=== PATIENT | male | born 1955 | race Caucasian/White ===

== ENCOUNTER 2016-10-18 21:28 | Emergency (ER) | payer SELFPAY ==
[2016-10-18] MEDS ORDERED: Oseltamivir 75 MG CAP ONE (22:22)
--- NOTE | 2016-10-18 22:22 | RAD ---
PA AND LATERAL CHEST: HISTORY: Cough and body aches. FINDINGS: Heart size and mediastinum are within normal limits. The lungs are clear of infiltrates. No signif icant bony findings. IMPRESSION: No active intrathoracic disease. POS: [facility]
--- NOTE | 2016-10-18 22:29 | PICIS ---
[facility] EMERGENCY RECORD TRIAGE (21:36 KASA) TRIAGE NOTES: Coughing started yesterday. Has been hot/cold all day. Has "only been able to sleep and cough". Pain on back when breathing (L>R). (21:36 KASA) PATIENT: NAME: Maco David, AGE: 61, GENDER: male, : Sat 1955, TIME OF GREET: SatOct 18, 2016 21:29, PREFERRED LANGUAGE: Irish, ETHNICITY: Not or , ECODE BILLING MAP: [facility] ER, SSN: [id number], Zip Code: [address], KG WEIGHT: [phone], PHONE: , , , PERSON ID: [id number], PCP: None. (21:36 KASA) COMPLAINT: Cough. (21:36 KASA) ADMISSION: URGENCY: 3 Urgent, ADMISSION SOURCE: Home, TRANSPORT: CAR, BED: ER -03. (21:36 KASA) PAIN: Patient complains of pain described as, stabbing, on a scale 0-10 patient rates pain as 4, Location Back, Pain is constant, Onset was 10/17/2016, Aggravating factors:, Aggravating factors include Coughing, No relieving factors. (21:45 KASA) IMMUNIZATIONS: Flu vaccine not up to date, Tetanus immunization up to date. (21:45 KASA) SIRS SCORING: Heart Rate 55-109 (0), Temp range 96.8-101.1 (0), respiratory rate 12-24 (0), Mental Status altered: no (0). (21:45 KASA) TRIAGE SCREENING: Patient denies suicidal ideation, Patient denies presence of domestic violence. (21:45 KASA) PROVIDERS: TRIAGE NURSE: Elizabeth Jalloh RN. (21:36 KASA) VITAL SIGNS: BP 126/75, Pulse 82, Resp 26, Temp 99.0, (Oral), Pain 4, (Stabbing), O2 Sat 94, on Room Air, Time 10/18/2016 21:32. (21:32 KASA) PREVIOUS VISIT ALLERGIES: No Known Drug Intolerances. (21:36 KASA) No Known Drug Intolerances. (21:45 KASA) KNOWN ALLERGIES No Known Drug Intolerances CURRENT MEDICATIONS (21:36 KASA) None VITAL SIGNS (21:32 KASA) VITAL SIGNS: BP: 126/75, Pulse: 82, Resp: 26, Temp: 99.0 (Oral), Pain: 4 (Stabbing), O2 sat: 94 on Room Air, Time: 10/18/2016 21:32. NURSING ASSESSMENT: CARDIOVASCULAR (21:45 KASA) CARDIOVASCULAR: Cardiovascular assessment findings include heart rate normal, Heart sounds normal, Associated with, +1 edema to the lower extremities, pitting, Notes: Patient states history of diabetes. Patient educated on the need to check his feet everyday. Admits to smoking and states he is trying &a-1R&a+25V*p+0X*b5748V*c202B*c15G*c2P*p-0X&a-25V&a+1R Name: Maco David : 1955 M61 MedRec: [id number] AcctNum: [id number] Prepared: [facility] Oct 18, 2016 22:33 by Interface Page 1 of 7 pMD [facility] EMERGENCY RECORD to quit. Encouraged to keep on working on it. NURSING ASSESSMENT: RESPIRATORY /CHEST (21:45 KASA) CONSTITUTIONAL: Patient arrives ambulatory, Gait steady, History obtained from patient, Patient appears, generally ill, obese, uncomfortable, Patient cooperative, Patient alert, Oriented to person, place and time, Skin warm, Skin dry, Skin normal in color, Mucous membranes pink, Mucous membranes moist, Patient complains of Cough, aching, Coughing started yesterday. Has been hot/cold all day. Has "only been able to sleep and cough". Pain on back when breathing (L>R). RESPIRATORY/CHEST: Breath sounds clear, Respiratory assessment findings include respiratory effort easy, Respirations regular, Conversing normally, Neck and chest exam findings include trachea midline, Chest expansion equal, Chest movement symmetrical, no signs of distress, Associated with cough, non-productive, productive of, yellow sputum. SAFETY: Side rails up, Cart/Stretcher in lowest position, Family at bedside, Call light within reach, Hospital ID band on. NURSING PROCEDURE: ENT (21:40 EPIE) ENT: Nasal swab collected, labeled in the presence of the patient and sent to lab for testing of, influenza A, influenza B, collected by Valarie CARDENAS. FOLLOW-UP: After procedure, no further bleeding from nose. NURSING PROCEDURE: RESPIRATORY INTERVENTIONS (22:00 KASA) PATIENT IDENTIFIER: Patient actively involved in identification process, Patient's identity verified by patient stating name, Patient's identity verified by patient stating date. RESPIRATORY INTERVENTIONS: Respiratory interventions indicated for SOB, Patient given ALBUTEROL with ATROVENT, Single dose nebulizer, Dose: 3 ml, Aerochamber used, Aerochamber instruction given, Patient returned demonstration of use of aerochamber. SAFETY: Side rails up, Cart/Stretcher in lowest position, Family at bedside, Call light within reach, Hospital ID band on. NURSING PROCEDURE: TRANSPORT TO TESTS PATIENT IDENTIFIER: Patient actively involved in identification process, Patient's identity verified by patient stating name, Patient's identity verified by patient stating date. (21:50 KASA) TRANSPORT TO TESTS: Patient transported to x-ray, via cart, Accompanied by x-ray hazardous waste material technician. (21:50 KASA) FOLLOW-UP: After procedure, patient returned to emergency department. (21:56 KASA) SAFETY: Side rails up, Cart/Stretcher in lowest position, Family at bedside, Call light within reach, Hospital ID band on. (21:56 KASA) &a-1R&a+25V*p+0X*q4955L*c202B*c15G*c2P*p-0X&a-25V&a+1R Name: Maco David : 1955 M61 MedRec: [id number] AcctNum: [id number] Prepared: SatOct 18, 2016 22:33 by Interface Page 2 of 7 pMD [facility] EMERGENCY RECORD Side rails up, Cart/Stretcher in lowest position, Family at bedside, Call light within reach, Hospital ID band on. (21:50 KASA) ORDER DETAILS Order Name: ERRT * Smal Vol Neb Initial Trmt, Status: Active, Time: 21:56 10/18/2016, User: RUFINA, - Ordered for: MD Donte, Ty, - Entered by: RONALD Mason Emily - [facility] Oct 18, 2016 21:56, - Quantity: 1, Order Name: Influenza A&B Ag Screen, Status: Active, Time: 21:36 10/18/2016, User: KAI, - Ordered for: MD Kent Joshua, - Entered by: MD Kent Joshua - [facility] Oct 18, 2016 21:36, - Quantity: 1, Order Name: XR Chest Pa & Lat STANDARD, Status: Active, Time: 21:37 10/18/2016, User: KAI, - Ordered for: MD Kent Joshua, - Entered by: MD Kent Joshua - [facility] Oct 18, 2016 21:37, - Quantity: 1. MEDICATION ADMINISTRATION SUMMARY Drug Name: Tamiflu, Dose Ordered: 75 mg, Route: Oral, Status: Given, Time: 22:26 10/18/2016, Drug Name: *DuoNeb, Dose Ordered: 3 mL, Route: Nebulize, Status: Given, Time: 21:59 10/18/2016, *Additional information available in notes, Detailed record available in Medication Service section. MEDICATION SERVICE DuoNeb: Order: DuoNeb (ipratropium bromide/albuterol sulfate) - Dose: 3 mL : Nebulize Notes: (0.5mg Ipratropium [place]/3mg Albuterol Sulfate = 3ml) Ordered by: Ty Kent MD Entered by: Ty Kent MD [facility] Oct 18, 2016 21:48 , Acknowledged by: Elizabeth Jalloh RN [facility] Oct 18, 2016 21:57 Documented as given by: Elizabeth Jalloh RN [facility] Oct 18, 2016 21:59 Patient, Medication, Dose, Route and Time verified prior to administration. Amount given: 3 ml, Site: Medication administered via Hand-held nebulizer, With oxygen, Correct patient, time, route, dose and medication confirmed prior to administration, Patient advised of actions and side-effects prior to administration, Allergies confirmed and medications reviewed prior to administration, Patient in position of comfort, Side rails up, Cart in lowest position, Family at bedside. Tamiflu: Order: Tamiflu (oseltamivir phosphate) - Dose: 75 mg : Oral Ordered by: Ty Kent MD Entered by: Ty Kent MD [facility] Oct 18, 2016 22:18 , &a-1R&a+25V*p+0X*z5655E*c202B*c15G*c2P*p-0X&a-25V&a+1R Name: Maco David : 1955 M61 MedRec: [id number] AcctNum: [id number] Prepared: SatOct 18, 2016 22:33 by Interface Page 3 of 7 pMD [facility] EMERGENCY RECORD Acknowledged by: Elizabeth Jalloh RN [facility] Oct 18, 2016 22:22 Documented as given by: Elizabeth Jalloh RN [facility] Oct 18, 2016 22:26 Patient, Medication, Dose, Route and Time verified prior to administration. Amount given: 75 mg, Site: Medication administered P.O., Correct patient, time, route, dose and medication confirmed prior to administration, Patient advised of actions and side-effects prior to administration, Allergies confirmed and medications reviewed prior to administration, Patient in position of comfort, Side rails up, Cart in lowest position, Family at bedside. HPI FLU-LIKE SYNDROME (21:48 JLOY) CHIEF COMPLAINT: Patient presents for evaluation of body aches, Patient presents for evaluation of fatigue, Patient presents for evaluation of fever, subjective, Patient presents for evaluation of upper respiratory infection, Patient presents for evaluation of Pt with 2 days of cough, body aches. Pt reports contact with a child diagnosed with flu this week. HISTORIAN: History provided by patient. LOCATION: No localizing symptoms. QUALITY: Pain is dull in nature, described as aching. TIME COURSE: Gradual onset of symptoms, Symptoms are worsening. ASSOCIATED WITH: No associated abdominal pain, No associated chest pain, Associated with cough, productive, No associated diarrhea, No associated flank pain, Associated with headache, intermittent, No associated vomiting, Associated with shortness of breath, intermittent, No associated urinary tract infection signs or symptoms. EXACERBATED BY: Patient's condition exacerbated by nothing. RELIEVED BY: Patient's condition relieved by prescription medications, neb treatment 8 hours ago. IMMUNIZATION STATUS: Flu vaccine up to date, Pneumococcal vaccine up to date. ROS (21:50 JLOY) CONSTITUTIONAL: Historian reports chills, reports fever. EYES: Historian denies eye pain, denies eye redness, denies eye discharge. ENT: Historian denies rhinorrhea, reports sore throat. CARDIOVASCULAR: Historian denies chest pain. RESPIRATORY: Historian reports cough, reports shortness of breath, reports sputum. yellow. GI: Historian denies abdominal pain, denies diarrhea, denies nausea, denies vomiting. GENITOURINARY MALE: Historian denies dysuria, denies hematuria. MUSCULOSKELETAL: Historian reports arthralgias, reports myalgias. NEUROLOGIC: Historian denies dizziness, intermittent &a-1R&a+25V*p+0X*o4171C*c202B*c15G*c2P*p-0X&a-25V&a+1R Name: Maco David : 1955 M61 MedRec: [id number] AcctNum: [id number] Prepared: Bambi Oct 18, 2016 22:33 by Interface Page 4 of 7 pMD [facility] EMERGENCY RECORD TALAMANTES. ENDOCRINE: Historian reports polyuria. PAST MEDICAL HISTORY MEDICAL HISTORY: Flu vaccine not up to date, Tetanus immunization up to date, Date of immunization: 2014, Past medical history includes cardiac history, coronary artery disease, Past medical history includes history of diabetes, Type II, not currently on treatment, noncompliant with treatment regime, Past medical history includes endocrine disease, hypothyroidism, Past medical history includes gastrointestinal disease, gallstones, Past medical history includes history of hyperlipidemia, high cholesterol, high triglycerides, currently not being treated, Past medical history includes history of hypertension, which has not been treated, Patient is noncompliant, Past medical history includes pulmonary disease, chronic obstructive pulmonary disease. (21:45 KASA) MALE SURGICAL HISTORY: Surgical history of cholecystectomy, cardiac cath, no stent placement. (21:45 KASA) PSYCHIATRIC HISTORY: Psychiatric history includes, depression. (21:45 KASA) SOCIAL HISTORY: Patient denies alcohol use, Patient denies drug use, Patient currently uses tobacco, smokes cigarettes, daily, Patient has smoked for 30 years, Patient smokes 1 pack per day, Lives at home, with family, and 3 grandkids. (21:45 KASA) FAMILY HISTORY: Paternal history of cardiac disease:, coronary artery disease, myocardial infarction, Paternal history of diabetes:, Paternal history of hypertension:, Maternal history of hypertension. (21:45 KASA) NOTES: Nursing records reviewed, Agree with nursing records. (21:51 JLOY) PHYSICAL EXAM (21:50 JLOY) CONSTITUTIONAL: Vital signs reviewed, Patient appears non toxic, Patient alert and oriented to person, place and time. EYES: Eye exam included findings of eyelids normal to inspection, Pupils equally round and reactive to light, Conjunctiva normal. ENT: Pharynx exam normal, Uvula exam normal, Tonsil exam normal, Mouth exam included findings of, mucous membranes dry. NECK: Neck exam included findings of normal range of motion, Trachea midline, no cervical adenopathy. RESPIRATORY CHEST: Respiratory exam included findings of no respiratory distress, Wheezing present, scattered, Breath sounds otherwise clear, Chest exam included findings of chest movement symmetrical. CARDIOVASCULAR: Cardiovascular exam included findings of heart &a-1R&a+25V*p+0X*o1477B*c202B*c15G*c2P*p-0X&a-25V&a+1R Name: Maco David : 1955 M61 MedRec: [id number] AcctNum: [id number] Prepared: SatOct 18, 2016 22:33 by Interface Page 5 of 7 pMD [facility] EMERGENCY RECORD rate regular rate and rhythm, Heart sounds normal. ABDOMEN MALE: Abdominal exam included findings of abdomen nontender, Bowel sounds normal. BACK: Back exam included findings of normal inspection. UPPER EXTREMITY: Upper extremity exam included findings of inspection normal. LOWER EXTREMITY: Lower extremity exam included findings of inspection normal, no edema, no calf tenderness. NEURO: Meenakshi coma scale 15, Neuro exam findings include patient oriented to person, place and time, Speech normal. SKIN: Skin exam included findings of skin warm, dry, and normal in color, no rash. PSYCHIATRIC: Normal affect. EVENTS TRANSFER: Triage to Emergency Emergency Room -03. ([facility] Oct 18, 2016 21:36 KASA) Removed from Emergency Emergency Room -03. (22:31 KASA) DOCTOR NOTES (22:19 JLOY) RE-EVALUATION: The patient's condition has improved, Pt feels less SOB after the treatment. No wheezing and good airflow on exam. TEXT: Discussed the results. With the positive exposure the negative flu is likely a false negative. Discussed treatment vs symptomatic treatment. The patient has a history of yearly hospitalizations for pneumonia and has diabetes. Will treat with Tamiflu to reduce severity of the disease. PROBLEM LIST No recorded problems DIAGNOSIS (22:19 JL) FINAL: PRIMARY: Viral infection. DISPOSITION PATIENT: Disposition Type: Discharge, Disposition: *Discharge Home. (22:19 NATALIA) Patient left the department. (22:31 BENNIE) INSTRUCTION (22:19 JL) DISCHARGE: FLU ADULT. FOLLOWUP: Follow up with Primary Care Physician in 7-10 days. PRESCRIPTION (22:18 JL) Tamiflu: CAPSULE : 75 mg : ORAL : Quantity: 75 Unit: mg Route: ORAL Schedule: 2 times a day Dispense: 9 Unit: cap(s) May substitute. Refills: No Refills . NOTES: No Refills. &a-1R&a+25V*p+0X*o5670R*c202B*c15G*c2P*p-0X&a-25V&a+1R Name: Frankie Maco Malik : 1955 [facility] MedRec: [id number] AcctNum: [id number] Prepared: SatOct 18, 2016 22:33 by Interface Page 6 of 7 pMD [facility] EMERGENCY RECORD ADMIN (22:21 [facility]) DIGITAL SIGNATURE: MD Donte, Ty. Silverman: RUFINA=RONALD Mason, Valarie QUINN=MD Donte, Ty AVERY=RONALD Jalloh, [facility] &a-1R&a+25V*p+0X*s9630Q*c202B*c15G*c2P*p-0X&a-25V&a+1R Name: Frankie Maco Malik : 1955 M61 MedRec: [id number] AcctNum: [id number] Prepared: SatOct 18, 2016 22:33 by Interface Page 7 of 7 pMD [facility]
== END 2016-10-18 22:30 | disposition home or self-care (01) ==
LOC: NAV ERS 21:28
DX: B34.9 Viral infection, unspecified (principal); E11.9 Type 2 diabetes mellitus without complications; E03.9 Hypothyroidism, unspecified; E78.5 Hyperlipidemia, unspecified; I10 Essential (primary) hypertension; J44.9 Chronic obstructive pulmonary disease, unspecified; F32.9 Major depressive disorder, single episode, unspecified; F17.210 Nicotine dependence, cigarettes, uncomplicated
CPT/HCPCS: 71020; 94640; J7620

== ENCOUNTER 2017-07-10 16:49 | Emergency (ER) | payer MEDICAID, SELFPAY ==
[2017-07-10] MEDS ORDERED: HYDROcodone/Acetaminophen 10/325 mg Tablet ONE (17:17)
[2017-07-10] MEDS ORDERED: Ibuprofen 800 MG TAB ONE (17:17)
--- NOTE | 2017-07-10 18:04 | RAD ---
FOUR VIEWS LEFT KNEE HISTORY: Left knee pain which is chronic for 7 years. The patient presents to the Emergency Department for e valuation of this chronic left knee pain. FINDINGS: AP, lateral, and both oblique views of the left knee are obtained. \H\ \N\No evidence of a left knee fracture, subluxations, or bony lesions seen. IMPRESSION: Normal four views of the left knee. POS: [facility]
== END 2017-07-10 18:14 | disposition home or self-care (01) ==
LOC: NAV ERS 16:49
DX: M17.12 Unilateral primary osteoarthritis, left knee (principal); I25.10 Atherosclerotic heart disease of native coronary artery without angina pectoris; E11.9 Type 2 diabetes mellitus without complications; E03.9 Hypothyroidism, unspecified; E78.5 Hyperlipidemia, unspecified; E78.2 Mixed hyperlipidemia; I10 Essential (primary) hypertension; J44.9 Chronic obstructive pulmonary disease, unspecified; F32.9 Major depressive disorder, single episode, unspecified; F17.210 Nicotine dependence, cigarettes, uncomplicated; Z79.84 Long term (current) use of oral hypoglycemic drugs; Z79.899 Other long term (current) drug therapy

== ENCOUNTER 2017-10-06 22:31 | Emergency (ER) | payer SELFPAY ==
--- NOTE | 2017-10-06 23:06 | RAD ---
PORTABLE CHEST: History: Chest pain. Comparison: 10-18-16 FINDINGS: The lungs appear clear. Heart and mediastinum unremarkable. No acute process or interval change. IMPRESSION: No acute findings. POS: [facility]
[2017-10-06 23:21] LABS: Band 1 % (5-11); Eosinophils 3 % (0-10); Hemoglobin 17.2 g/dL (14.0-18.0); Lymphocytes 32 % (21-51); MDiff Complete? YES; Mean Corpuscular HGB CONC 32.5 g/dL (32.0-36.0); Mean Corpuscular Hemoglobin 30.2 pg (27.0-31.0); Mean Platelet Volume 10.4 fL (7.4-10.4); Monocytes 7 % (0-10); Neutrophil 57 % (42-75); PLT Morphology Comment Appears Adequate; Platelet Count 159 thou/uL (130-400); RBC Distribution Width 13.3 % (11.5-14.5); RBC Morphology Normal; White Blood Cell (WBC) Count 10.5 thou/uL (4.8-10.8)
[2017-10-06 23:29] LABS: ALT (SGPT) 16 U/L (8-55); AST (SGOT) 16 U/L (5-34); Albumin 3.6 g/dL (3.4-4.8); Alkaline Phosphatase 80 U/L (40-150); Anion Gap 15 mmol/L (10-20); BUN (Urea Nitrogen) 11 mg/dL (8.4-25.7); Bilirubin, Total 0.3 mg/dL (0.2-1.2); Calc. Creatinine Clearance 0 mL/min (70-130); Calcium 9.1 mg/dL (7.8-10.44); Carbon Dioxide 24 mmol/L (23-31); Chloride 105 mmol/L (98-107); Estimated GFR-MDRD 76; Globulin 3.6 g/dL (2.4-3.5); Glucose 98 mg/dL (80-115); Potassium 4.5 mmol/L (3.5-5.1); Protein, Total 7.2 g/dL (5.8-8.1); Sodium 139 mmol/L (136-145)
[2017-10-06 23:31] LABS: CKMB 0.7 ng/mL (0-6.6); Troponin I Less than 0.010 ng/mL (< 0.028)
== END 2017-10-07 00:17 | disposition short-term general hospital (02) ==
LOC: NAV ERS 22:31
DX: R07.9 Chest pain, unspecified (principal); I25.10 Atherosclerotic heart disease of native coronary artery without angina pectoris; E11.9 Type 2 diabetes mellitus without complications; E03.9 Hypothyroidism, unspecified; E78.5 Hyperlipidemia, unspecified; I10 Essential (primary) hypertension; F17.210 Nicotine dependence, cigarettes, uncomplicated; Z79.84 Long term (current) use of oral hypoglycemic drugs; Z79.899 Other long term (current) drug therapy
CPT/HCPCS: 36415; 71045; 80053; 82553; 83880; 84484; 85025; 93005

== ENCOUNTER 2020-08-29 17:58 | Emergency (ER) | payer SELFPAY ==
[2020-08-29] MEDS ORDERED: Meclizine HCl 25 MG TAB ONE (18:29)
--- NOTE | 2020-08-29 18:51 | CT ---
Exam: Head CT without contrast HISTORY: Dizziness. COMPARISON: FINDINGS: Hemorrhage: No intraparenchymal hemorrhage or extra-axial hematoma. Brain parenchyma: Cortical rodriguez-white matter differentiation is preserved. No mass effect or midline shift. Basilar cisterns are patent. Ventricular system: Ventricles and sulci are patent and symmetric. Calvarium: Intact. Sinuses and mastoid air cells: Bilateral maxillary sinus disease. IMPRESSION: No acute intracranial process.
[2020-08-29 19:04] LABS: ALT (SGPT) 16 U/L (8-55); AST (SGOT) 14 U/L (5-34); Albumin 3.8 g/dL (3.4-4.8); Alkaline Phosphatase 78 U/L (40-110); Anion Gap 13 mmol/L (10-20); BUN (Urea Nitrogen) 16 mg/dL (8.4-25.7); Bilirubin, Total 0.5 mg/dL (0.2-1.2); Calc. Creatinine Clearance 0 mL/min (70-130); Calcium 8.8 mg/dL (7.8-10.44); Carbon Dioxide 26 mmol/L (23-31); Chloride 102 mmol/L (98-107); Globulin 3.2 g/dL (2.4-3.5); Glucose 95 mg/dL (80-115); Potassium 4.3 mmol/L (3.5-5.1); Sodium 137 mmol/L (136-145)
[2020-08-29 19:13] LABS: #Basophils 0.1 thou/uL (0.0-0.2); #Eosinphils 0.2 thou/uL (0.0-0.7); #Monocytes 0.8 thou/uL (0.11-0.59); #Neutrophils 4.8 thou/uL (1.40-6.50); %Basophils 1.5 % (0.0-1.0); %Lymphocytes 33.7 % (21.0-51.0); %Monocytes 8.7 % (0.0-10.0); %Neutrophils 54.1 % (42.0-75.0); Hemoglobin 17.8 g/dL (14.0-18.0); Mean Corpuscular HGB CONC 32.8 g/dL (32.0-36.0); Mean Corpuscular Hemoglobin 32.3 pg (27.0-31.0); Mean Corpuscular Volume 98.5 fL (78.0-98.0); Mean Platelet Volume 9.4 fL (7.4-10.4); Platelet Count 159 thou/uL (130-400); RBC Distribution Width 13.6 % (11.5-14.5); White Blood Cell (WBC) Count 8.9 thou/uL (4.8-10.8)
--- NOTE | 2020-08-29 19:15 | RAD ---
Exam: Chest one view HISTORY:Dizziness. Hypertension. Comparison: 10/06/2017 FINDINGS: Cardiac silhouette: Normal Aorta: Unremarkable Pulmonary vessels: Normal Costophrenic angles: Clear LUNGS: No masses or consolidation. Pneumothorax: None Osseous abnormalities: None IMPRESSION: No acute cardiopulmonary process.
== END 2020-08-29 19:30 | disposition home or self-care (01) ==
LOC: NAV ERS 17:58
DX: H81.391 Other peripheral vertigo, right ear (principal); I25.10 Atherosclerotic heart disease of native coronary artery without angina pectoris; E11.9 Type 2 diabetes mellitus without complications; E03.9 Hypothyroidism, unspecified; E78.2 Mixed hyperlipidemia; I10 Essential (primary) hypertension; J44.9 Chronic obstructive pulmonary disease, unspecified; F17.210 Nicotine dependence, cigarettes, uncomplicated; Z79.82 Long term (current) use of aspirin; Z79.84 Long term (current) use of oral hypoglycemic drugs; Z79.899 Other long term (current) drug therapy
CPT/HCPCS: 36415; 70450; 71045; 80053; 84484; 85025; 93005

== ENCOUNTER 2021-04-01 16:24 | Emergency (ER) | payer MEDICARE, SELFPAY ==
[2021-04-01] MEDS ORDERED: Morphine 4 MG/ML VIAL ONE (16:44)
== END 2021-04-01 17:28 | disposition home or self-care (01) ==
LOC: NAV ERS 16:24
DX: S83.91XA Sprain of unspecified site of right knee, initial encounter (principal); I25.10 Atherosclerotic heart disease of native coronary artery without angina pectoris; E11.9 Type 2 diabetes mellitus without complications; E78.5 Hyperlipidemia, unspecified; E78.00 Pure hypercholesterolemia, unspecified; E78.1 Pure hyperglyceridemia; I10 Essential (primary) hypertension; E03.9 Hypothyroidism, unspecified; J44.9 Chronic obstructive pulmonary disease, unspecified; F17.210 Nicotine dependence, cigarettes, uncomplicated; Z79.82 Long term (current) use of aspirin; Z79.899 Other long term (current) drug therapy; Z79.84 Long term (current) use of oral hypoglycemic drugs; X50.1XXA Overexertion from prolonged static or awkward postures, initial encounter
CPT/HCPCS: 96372; J2270

== ENCOUNTER 2023-01-15 11:23 | Emergency (ER) | payer MEDICARE ==
[2023-01-15] MEDS ORDERED: Sodium Chloride 0.9% 100 ML ONE (12:04)
[2023-01-15] MEDS ORDERED: diphenhydrAMINE 50 MG/ML VIAL ONE (12:04)
[2023-01-15] MEDS ORDERED: Metoclopramide HCl 10 MG/2 ML VIAL ONE (12:04)
[2023-01-15] MEDS ORDERED: Sodium Chloride 0.9% 1,000 ML ONE (12:04)
[2023-01-15 12:20] LABS: #Basophils 0.1 thou/uL (0.0-0.2); #Eosinphils 0.1 thou/uL (0.0-0.7); #Lymphocytes 1.8 thou/uL (1.20-3.40); #Monocytes 0.4 thou/uL (0.11-0.59); %Basophils 0.8 % (0.0-1.0); %Lymphocytes 17.6 % (21.0-51.0); %Monocytes 3.5 % (0.0-10.0); %Neutrophils 77.1 % (42.0-75.0); Hemoglobin 18.2 g/dL (14.0-18.0); Mean Corpuscular HGB CONC 32.6 g/dL (32.0-36.0); Mean Corpuscular Hemoglobin 31.7 pg (27.0-31.0); Mean Corpuscular Volume 97.3 fl (78.0-98.0); Mean Platelet Volume 8.8 fL (7.4-10.4); Platelet Count 150 10x3/uL (130-400); RBC Distribution Width 14.7 % (11.5-14.5); Red Blood Cell (RBC) Count 5.73 mill/uL (4.70-6.10); White Blood Cell (WBC) Count 10.4 10x3/uL (4.8-10.8)
[2023-01-15 12:34] LABS: ALT (SGPT) 17 U/L (8-55); AST (SGOT) 18 U/L (5-34); Albumin 4.1 g/dL (3.4-4.8); Alkaline Phosphatase 85 U/L (40-110); Anion Gap 16 mmol/L (10-20); BUN (Urea Nitrogen) 13 mg/dL (8.4-25.7); Bilirubin, Total 0.6 mg/dL (0.2-1.2); Calc. Creatinine Clearance 0 mL/min (70-130); Calcium 9.1 mg/dL (7.8-10.44); Carbon Dioxide 23 mmol/L (23-31); Chloride 103 mmol/L (98-107); Estimated GFR 84; Globulin 3.5 g/dL (2.4-3.5); Glucose 135 mg/dL (80-115); Potassium 4.6 mmol/L (3.5-5.1); Protein, Total 7.6 g/dL (5.8-8.1); Sodium 137 mmol/L (136-145)
== END 2023-01-15 13:20 | disposition home or self-care (01) ==
LOC: NAV ERS 11:23
DX: G43.909 Migraine, unspecified, not intractable, without status migrainosus (principal); I25.10 Atherosclerotic heart disease of native coronary artery without angina pectoris; E11.9 Type 2 diabetes mellitus without complications; E03.9 Hypothyroidism, unspecified; E78.00 Pure hypercholesterolemia, unspecified; J44.9 Chronic obstructive pulmonary disease, unspecified; F17.210 Nicotine dependence, cigarettes, uncomplicated; Z79.82 Long term (current) use of aspirin; Z79.899 Other long term (current) drug therapy
CPT/HCPCS: 80053; 85025; 96365; 96375; J1200; J2765; J7050

== ENCOUNTER 2023-01-18 17:02 | Emergency (ER) | payer MEDICARE ==
[2023-01-18] MEDS ORDERED: Ondansetron ODT 4 MG TAB ONE (17:51)
[2023-01-18] MEDS ORDERED: Meclizine HCl 25 MG TAB ONE (18:08)
== END 2023-01-18 18:33 | disposition home or self-care (01) ==
LOC: NAV ERS 17:02
DX: R42 Dizziness and giddiness (principal); I25.10 Atherosclerotic heart disease of native coronary artery without angina pectoris; E11.9 Type 2 diabetes mellitus without complications; E03.9 Hypothyroidism, unspecified; E78.2 Mixed hyperlipidemia; J44.9 Chronic obstructive pulmonary disease, unspecified; F17.210 Nicotine dependence, cigarettes, uncomplicated; Z79.82 Long term (current) use of aspirin; Z79.899 Other long term (current) drug therapy
CPT/HCPCS: 99283; Q0162

== ENCOUNTER 2023-04-21 09:40 | Emergency (ER) | payer MEDICARE, SELFPAY ==
[2023-04-21] MEDS ORDERED: Ondansetron PF 4 MG/2 ML Vial ONE (10:26)
[2023-04-21] MEDS ORDERED: Diazepam 10 MG/2 ML SYRINGE ONE ×2 (10:26→12:26)
[2023-04-21] MEDS ORDERED: Sodium Chloride 0.9% 1,000 ML ONE (10:26)
[2023-04-21 10:46] LABS: #Basophils 0.1 thou/uL (0.0-0.2); #Eosinphils 0.1 thou/uL (0.0-0.7); #Lymphocytes 2.7 thou/uL (1.20-3.40); #Monocytes 0.4 thou/uL (0.11-0.59); #Neutrophils 4.6 thou/uL (1.40-6.50); %Eosinophils 1.7 % (0.0-10.0); %Lymphocytes 33.4 % (21.0-51.0); %Monocytes 5.5 % (0.0-10.0); %Neutrophils 58.5 % (42.0-75.0); Hematocrit 56.1 % (42.0-52.0); Hemoglobin 18.2 g/dL (14.0-18.0); Mean Corpuscular HGB CONC 32.4 g/dL (32.0-36.0); Mean Corpuscular Hemoglobin 31.2 pg (27.0-31.0); Mean Corpuscular Volume 96.4 fl (78.0-98.0); Mean Platelet Volume 9.6 fL (7.4-10.4); Platelet Count 157 10x3/uL (130-400); RBC Distribution Width 14.1 % (11.5-14.5); Red Blood Cell (RBC) Count 5.82 mill/uL (4.70-6.10); White Blood Cell (WBC) Count 7.9 10x3/uL (4.8-10.8)
[2023-04-21 11:04] LABS: ALT (SGPT) 18 U/L (8-55); AST (SGOT) 15 U/L (5-34); Albumin 3.9 g/dL (3.4-4.8); Alkaline Phosphatase 81 U/L (40-110); Anion Gap 13 mmol/L (10-20); BUN (Urea Nitrogen) 12 mg/dL (8.4-25.7); Bilirubin, Total 0.6 mg/dL (0.2-1.2); Calc. Creatinine Clearance 0 mL/min (70-130); Calcium 9.2 mg/dL (7.8-10.44); Carbon Dioxide 24 mmol/L (23-31); Chloride 105 mmol/L (98-107); Estimated GFR 74; Globulin 3.6 g/dL (2.4-3.5); Glucose 97 mg/dL (80-115); Protein, Total 7.5 g/dL (5.8-8.1); Sodium 138 mmol/L (136-145)
[2023-04-21 11:06] LABS: Bilirubin Negative (Negative); Blood, Urine Negative (Negative); CAUTI Indications for Culture Dysuria,urgency,freq; Clarity Clear (Clear); Glucose, Urine (Dipstick) Negative (Negative); Ketone, Urine Negative (Negative); Leukocyte Negative (Negative); Nitrite Negative (Negative); Protein, Urine (Dipstick) Negative (Neg-Trace); Specific Gravity, Urine 1.015 (1.005-1.030)
[2023-04-21 11:07] LABS: Bacteria/HPF None Seen HPF (None Seen); RBC/HPF 0-3 HPF (0-3); Squamous Epithelial None Seen HPF (0-3); WBC/HPF 0-3 HPF (0-3)
[2023-04-21 11:08] LABS: Urine Culture Reflex No No
[2023-04-21] MEDS ORDERED: Lisinopril 10 MG TAB ONE (12:26)
[2023-04-21] MEDS ORDERED: Meclizine HCl 25 MG TAB ONE (12:26)
== END 2023-04-21 12:45 | disposition home or self-care (01) ==
LOC: NAV ERS 09:40
DX: H81.10 Benign paroxysmal vertigo, unspecified ear (principal); I25.10 Atherosclerotic heart disease of native coronary artery without angina pectoris; E11.9 Type 2 diabetes mellitus without complications; I10 Essential (primary) hypertension; E78.2 Mixed hyperlipidemia; E03.9 Hypothyroidism, unspecified; F17.210 Nicotine dependence, cigarettes, uncomplicated; Z79.82 Long term (current) use of aspirin; Z79.899 Other long term (current) drug therapy
CPT/HCPCS: 70450; 80053; 81001; 85025; 93005; 96361; 96374; 96375; 96376; J2405; J3360; J7050

== ENCOUNTER 2024-03-02 16:52 | Emergency (ER) | payer SELFPAY ==
[2024-03-02] MEDS ORDERED: Ondansetron PF 4 MG/2 ML Vial ONE (17:52)
[2024-03-02] MEDS ORDERED: Morphine 4 MG/ML VIAL ONE (17:52)
[2024-03-02 18:02] LABS: Hematocrit 48.8 % (42.0-52.0); Hemoglobin 15.1 g/dL (14.0-18.0); Mean Corpuscular Hemoglobin 28.1 pg (27.0-31.0); Mean Corpuscular Volume 90.5 fl (78.0-98.0); Red Blood Cell (RBC) Count 5.39 mill/uL (4.70-6.10); White Blood Cell (WBC) Count 6.8 10x3/uL (4.8-10.8)
[2024-03-02 18:03] LABS: #Basophils 0.1 thou/uL (0.0-0.2); #Eosinphils 0.1 thou/uL (0.0-0.7); #Lymphocytes 1.8 thou/uL (1.20-3.40); #Monocytes 0.5 thou/uL (0.11-0.59); #Neutrophils 4.3 thou/uL (1.40-6.50); %Basophils 1.1 % (0.0-1.0); %Eosinophils 2.1 % (0.0-10.0); %Lymphocytes 26.4 % (21.0-51.0); %Monocytes 7.8 % (0.0-10.0); %Neutrophils 62.5 % (42.0-75.0); Manual Diff?? NO; Mean Platelet Volume 8.1 fL (7.4-10.4); Platelet Count 145 10x3/uL (130-400); RBC Distribution Width 16.4 % (11.5-14.5)
[2024-03-02 18:15] LABS: ALT (SGPT) 20 U/L (8-55); AST (SGOT) 19 U/L (5-34); Albumin 3.5 g/dL (3.4-4.8); Alkaline Phosphatase 84 U/L (40-110); Anion Gap 15 mmol/L (10-20); BUN (Urea Nitrogen) 15 mg/dL (8.4-25.7); Bilirubin, Total 0.4 mg/dL (0.2-1.2); CK (CPK) 56 U/L (30-200); Calc. Creatinine Clearance 0 mL/min (70-130); Carbon Dioxide 23 mmol/L (23-31); Chloride 101 mmol/L (98-107); Estimated GFR 95; Globulin 3.3 g/dL (2.4-3.5); Glucose 122 mg/dL (80-115); Potassium 3.9 mmol/L (3.5-5.1); Protein, Total 6.8 g/dL (5.8-8.1); Sodium 135 mmol/L (136-145)
== END 2024-03-02 19:46 | disposition home or self-care (01) ==
LOC: NAV ERS 16:52
DX: M54.50 Low back pain, unspecified (principal); M25.552 Pain in left hip; R07.89 Other chest pain; I25.10 Atherosclerotic heart disease of native coronary artery without angina pectoris; E03.9 Hypothyroidism, unspecified; I10 Essential (primary) hypertension; J44.9 Chronic obstructive pulmonary disease, unspecified; F17.210 Nicotine dependence, cigarettes, uncomplicated; Z79.899 Other long term (current) drug therapy; Z79.82 Long term (current) use of aspirin
CPT/HCPCS: 72170; 80053; 82550; 85025; 96374; 96375; J2270; J2405

== ENCOUNTER 2024-04-04 20:16 | Emergency (ER) | payer SELFPAY | END 2024-04-04 21:11 | disposition home or self-care (01) | LOC: NAV ERS 20:16 | DX: M54.50 Low back pain, unspecified (principal); G89.29 Other chronic pain; E11.9 Type 2 diabetes mellitus without complications; I10 Essential (primary) hypertension; J44.9 Chronic obstructive pulmonary disease, unspecified; F17.210 Nicotine dependence, cigarettes, uncomplicated; Z91.148 Patient's other noncompliance with medication regimen for other reason | CPT/HCPCS: 99283 ==